=== PATIENT | male | born 1950 | race Caucasian/White ===

== ENCOUNTER 2019-08-07 11:13 | Outpatient (CLI) | payer MEDICARE, SELFPAY ==
--- NOTE | ~2019-08-07 | XR_ITS ---
EXAMINATION: XR finger 4th LT min 2V DATE: 08/07/2019 11:47 INDICATION: Pain at the left fourth distal interphalangeal joint. TECHNIQUE: Dorsal palmar, lateral and 2 oblique views of the left fourth digit were obtained COMPARISON: None FINDINGS: Bone alignment is normal. No fracture. Polyarticular osteoarthritis, severe at the first carpometacar pal joint with prominent subarticular cystic change at the base of the first metacarpal. Mild osteoar thritis at the visualized interphalangeal joints which include the fourth proximal and distal interph alangeal joints. Asymmetric soft tissue swelling at the ulnar side of the fourth distal interphalange al joint which in the setting of prior trauma suggesting possibility of ulnar collateral ligament inj ury. No erosions. IMPRESSION: 1. Polyarticular osteoarthritis, severe at the first carpometacarpal joint and mild at the interphala ngeal joints.. Reviewed, dictated and finalized at location A. IMPRESSION: 1. Polyarticular osteoarthritis, severe at the first carpometacarpal joint and mild at the interphalangeal joints..
== END 2019-08-07 11:14 | disposition home or self-care (01) ==
PROVIDERS: Visit Provider Plastic Surgery
DX: M19.042 Primary osteoarthritis, left hand (principal)
CPT/HCPCS: 73140